=== PATIENT | male | born 2000 | race Two or more races ===

== ENCOUNTER 2022-03-23 21:20 | Emergency (ER) | payer OTHER ==
[~2022-03-23] VITALS: Ht 180.3 cm; Wt 137.4 kg
[2022-03-23 21:58] VITALS: BP 146/77
[2022-03-24] MEDS ORDERED: ACETAMINOPHEN 325 MG TAB PO ONE
[2022-03-24] MEDS ORDERED: KETOROLAC TROMETH 60MG/2ML VIAL IM ONE
[2022-03-24] MEDS ORDERED: diazePAM 5 MG TAB PO ONE
[2022-03-24] MEDS ORDERED: CYCL-837 PO (01:19)
[2022-03-24] MEDS ORDERED: IBUP800T26 PO (01:19)
[2022-03-24] MEDS ORDERED: ACET-1803 PO (01:19)
== END 2022-03-24 03:18 | disposition home or self-care (01) ==
LOC: ER 21:20
DX: M54.9 Dorsalgia, unspecified (principal)
CPT/HCPCS: 96372; 99283; J1885